=== PATIENT | female | born 1945 | race Caucasian/White ===

== ENCOUNTER → 2017-07-08 | Outpatient (CLI) | payer MEDICARE ==
--- NOTE | 2017-07-08 14:12 | Diagnostic Imaging Report ---
TECHNIQUE: Magnetic resonance imaging of the LEFT WRIST was performed WITHOUT injected contrast, on a 5 lisette magnet. HISTORY: Pain, fall COMPARISON: None available. FINDINGS: Bone and bone marrow: Bone island in the distal radius. No acute fracture or osteonecrosis. The osseous alignment is within normal limits. Joints: Fluid within the joints is within physiologic limits. Degenerative arthrosis of the first carpometacarpal joint. Ligaments: Scapholunate: Intact Lunotriquetral: Intact Triangular fibrocartilage complex: Intact Extrinsic ligaments: Intact Tendons: The flexor and extensor tendons are intact. Carpal tunnel: The median nerve is within normal limits. Other soft tissues: Soft tissue edema/collection distal radial forearm extending approximately 5 cm in craniocaudal dimension. IMPRESSION: No acute osseous, ligamentous, or tendinous abnormality. Presumed fluid collection/hematoma within the radial volar forearm. Signed by: Dr. Lázaro Kingston M.D. on 07/08/2017 2:08 PM
== END ==
LOC: MRI 10:58
PROVIDERS: ATTEND Family Medicine
DX: M25.532 Pain in left wrist (principal); S60.212A Contusion of left wrist, initial encounter; M89.9 Disorder of bone, unspecified

== ENCOUNTER → 2017-08-01 | Outpatient (CLI) | payer MEDICARE ==
--- NOTE | 2017-08-12 08:31 | Diagnostic Imaging Report ---
#[id number] - MGSCRNBI #BILATERAL DIGITAL SCREENING MAMMOGRAM WITH CAD: 08/01/2017 CLINICAL: Routine screening. Comparison is made to exams dated: 07/11/2016 mammogram, 05/11/2015 mammogram and 05/04/2014 mammogram - [facility]. Current study contains 5 films. There are scattered fibroglandular elements in both breasts. Current study was also evaluated with a Computer Aided Detection (CAD) system. No significant masses, calcifications, or other findings are seen in either breast. There has been no significant interval change. IMPRESSION: BENIGN There is no mammographic evidence of malignancy. A 1 year screening mammogram is recommended. The patient will be notified by letter of the results. Mitch albert/waldemar:08/11/2017 13:43:01 Affiliate Marketing Specialist: Lynda BLAIR(R)(M), [facility] letter sent: Compared to Prior B9 Mammogram BI-RADS: 2 Benign
== END ==
LOC: MAMMO 10:28
PROVIDERS: ATTEND Family Medicine
DX: Z12.31 Encounter for screening mammogram for malignant neoplasm of breast (principal)
CPT/HCPCS: 77067

== ENCOUNTER → 2017-10-14 | Outpatient (CLI) | payer MEDICARE ==
--- NOTE | 2017-10-14 16:21 | Diagnostic Imaging Report ---
PROCEDURE: CT CHEST WITHOUT CONTRAST CT scan of the chest WITHOUT intravenous contrast, using standard protocol. TECHNIQUE: The chest was scanned utilizing a multidetector helical scanner from the apex to the level of the adrenal glands. No IV contrast was administered per physician's request. Coronal and sagittal multiplanar reformations were obtained. COMPARISON: Patients [facility], CT, CT CHEST WO, 09/20/2016, 9:52. INDICATIONS: CHRONIC BRONCHITIS FINDINGS: Lines/tubes: None. Lungs and Airways: Stable coarse reticular opacities with associated segmental bronchiectasis in the anteromedial right upper lobe (series 3, image 36). Stable bilateral mild subpleural reticulation, worse in the lower lobes (for example series 3, image 83), consistent with fibrotic changes. Stable reticular scarring and bronchiectasis in the medial right lower lobe (series 3, image 53). Stable 3 mm pulmonary nodule in the right upper lobe (series 3, image 64, and sagittal image 31). Stable 2 and 3 mm pulmonary nodules in the left upper lobe (series 3, image 34). Stable 3 mm subpleural nodular density in the superior segment of the right lower lobe (series 3, image 54), which previously had a more linear appearance. Stable mild wall thickening in the central aspect of the bronchi in both upper and lower lobes. No other pulmonary nodules. No masses or consolidation. Airways are clear, without endobronchial lesions. Pleura: No effusion, or pneumothorax. Heart and mediastinum: Thyroid is unremarkable. Heart size is normal. No pericardial effusion. Aorta is non-aneurysmal. The main pulmonary artery measures 2.6 cm. Atherosclerotic calcification of the thoracic aorta and coronary arteries. Lymph nodes: No mediastinal, hilar, or axillary enlarged lymph nodes. Abdomen: Limited views of the upper abdomen show no abnormality within the visualized liver, spleen, pancreas, or kidneys. The adrenal glands are normal. Bones: Stable dextro scoliosis of the thoracic spine with associated degenerative changes. No aggressive lytic lesion. Soft tissues are grossly unremarkable. IMPRESSION: 1. Stable mild fibrotic changes, worse in the lower lobes. 2. Stable coarse reticular opacities/scarring and associated bronchiectasis in the anteromedial right upper lobe, likely the sequela of prior infection or inflammation. 3. No consolidation or effusion. 4. Stable pulmonary nodules, as described. 5. Stable mild wall thickening in the central aspect of the bronchi in the upper and lower lobes, likely sequela of chronic bronchitis. Greyson Brooks M.D. Dictated by: Greyson Brooks M.D. on 10/14/2017 at 16:23 Electronically approved by: Greyson Brooks M.D. on 10/14/2017 at 16:23
== END ==
LOC: CT 11:45
PROVIDERS: ATTEND Internal Medicine Critical Care Medicine
DX: R09.02 Hypoxemia (principal); J45.909 Unspecified asthma, uncomplicated; J42 Unspecified chronic bronchitis; J44.9 Chronic obstructive pulmonary disease, unspecified; Z87.891 Personal history of nicotine dependence
CPT/HCPCS: 71250

== ENCOUNTER → 2018-06-23 | Outpatient (CLI) | payer MEDICARE ==
[~2018-06-23] MED LIST: ALBUTEROL/IPRATROPIUM 3 ML NEB ONE
== END ==
LOC: RESP 10:40
PROVIDERS: ATTEND Internal Medicine Critical Care Medicine
DX: R09.02 Hypoxemia (principal); J47.9 Bronchiectasis, uncomplicated; J45.909 Unspecified asthma, uncomplicated; J42 Unspecified chronic bronchitis; J44.9 Chronic obstructive pulmonary disease, unspecified; J84.9 Interstitial pulmonary disease, unspecified; Z87.891 Personal history of nicotine dependence
CPT/HCPCS: 94060; 94727; 94729

== ENCOUNTER → 2018-07-22 | Outpatient (CLI) | payer MEDICARE | LOC: MAMMO 10:12 | PROVIDERS: ATTEND Family Medicine | DX: Z12.31 Encounter for screening mammogram for malignant neoplasm of breast (principal) | CPT/HCPCS: 77067 ==

== ENCOUNTER → 2018-08-11 | Outpatient (CLI) | payer MEDICARE ==
--- NOTE | 2018-08-11 14:57 | Diagnostic Imaging Report ---
Examination: MRI BRAIN WITHOUT CONTRAST History: Fall with head injury and numbness of the back of the head. Comparison studies: None Technique: Sagittal T2; axial DWI, FLAIR, GRE or SWI, T1, Coronal FLAIR. Intravenous contrast: None Findings: Scalp: No abnormal signal. No masses. Bone marrow: Normal in signal intensity. Brain volume: Adequate for age. Ventricles: Normal in size and configuration. No hydrocephalus. Extra-axial spaces: No abnormalities. Parenchyma: There are patchy and punctate areas of T2/FLAIR hyperintensity in the periventricular and subcortical white matter, nonspecific. No masses, hemorrhage, or acute vascular insults. Suprasellar and sellar region: No abnormalities. Craniocervical junction: No abnormalities. The foramen magnum is patent. No Chiari malformations. Vessels: Normal flow-voids in the arteries and sinuses. Additional findings:Bilateral slitlike orbital lenses. IMPRESSION: 1. No acute intracranial abnormalities. 2. Mild chronic microvascular ischemic change. Signed by: Dr. Leigh Tan M.D. on 08/11/2018 2:54 PM
== END ==
LOC: MRI 13:44
PROVIDERS: ATTEND Family Medicine
DX: S06.0X1A Concussion with loss of consciousness of 30 minutes or less, initial encounter (principal); S00.83XA Contusion of other part of head, initial encounter
CPT/HCPCS: 70551

== ENCOUNTER → 2018-08-26 | Outpatient (CLI) | payer MEDICARE ==
--- NOTE | 2018-08-26 12:13 | Diagnostic Imaging Report ---
EXAMINATION: CT scan of the chest without contrast. TECHNIQUE: Spiral CT images of the chest were performed from the lung apices to the level of the adrenal glands. No intravenous contrast was administered per referring physician request. Coronal and sagittal reformatted images were obtained. COMPARISON: CT chest without contrast 10/14/2017 CLINICAL HISTORY:Nodule follow-up, bronchiectasis, asthma DISCUSSION: ABSENCE OF INTRAVENOUS CONTRAST DECREASES SENSITIVITY FOR DETECTION OF FOCAL LESIONS AND VASCULAR PATHOLOGY. LINES/TUBES: None. LUNGS AND AIRWAYS: Previously described 3 mm nodule in the periphery of the left upper lobe is unchanged (series 3 image 39). 3 mm nodule in the lateral aspect of the right lower lobe is also unchanged (series 3 image 59). 3 mm nodule in the right upper lobe is also unchanged (series 3 image 67). Additional 3 mm nodule in the left upper lobe (series 3, image 29) is unchanged. Stable coarse reticular opacities and bronchiectasis in the medial aspect of the right upper lobe. Bilateral subpleural reticulation, lower lobe predominant, is also unchanged. New patchy foci of groundglass opacity in the left upper lobe for example on series 3 image 54. The trachea, mainstem bronchi, and lobar bronchi are patent. PLEURA: No pneumothorax or pleural effusions. HEART AND MEDIASTINUM: Visualized portions of the thyroid gland appear normal. Stable borderline ectasia of the ascending thoracic aorta (3.9 cm). Atherosclerotic calcification of the [place] coronary arteries and aortic arch/great vessels. No pericardial effusion. LYMPH NODES: No axillary, hilar, or mediastinal lymphadenopathy. ABDOMEN: Visualized portions of the liver, spleen, pancreas, and adrenal glands are unremarkable. BONES AND SOFT TISSUES: No osseous destructive lesions. Scoliotic curvature of the thoracic spine is unchanged. Multilevel degenerative disc changes of the partially visualized lower cervical and thoracic spine. No focal soft tissue abnormalities. IMPRESSION: Stable mild lower lobe predominant fibrotic changes. Stable volume loss, scar, and bronchiectasis within the anteromedial aspect of the right upper lobe, presumably post infectious or inflammatory. New focal groundglass opacity within the lateral aspect of the left upper lobe may reflect active inflammation or atypical infection. Follow-up CT scan of the chest without contrast in 3-6 months is suggested to document resolution. Stable scattered small bilateral pulmonary nodules as above. Atherosclerotic vascular disease. Signed by: Dr. Sarabjit Shafer M.D. on 08/26/2018 12:10 PM
== END ==
LOC: CT 11:07
PROVIDERS: ATTEND Internal Medicine Critical Care Medicine
DX: R09.02 Hypoxemia (principal); J42 Unspecified chronic bronchitis; J44.9 Chronic obstructive pulmonary disease, unspecified; J84.9 Interstitial pulmonary disease, unspecified; J45.909 Unspecified asthma, uncomplicated; J47.9 Bronchiectasis, uncomplicated; Z87.891 Personal history of nicotine dependence
CPT/HCPCS: 71250

== ENCOUNTER → 2019-04-06 | Outpatient (CLI) | payer MEDICARE | LOC: RESP 10:15 | PROVIDERS: ATTEND Family Medicine | DX: R09.02 Hypoxemia (principal); J47.9 Bronchiectasis, uncomplicated; J45.909 Unspecified asthma, uncomplicated; R91.1 Solitary pulmonary nodule; J84.9 Interstitial pulmonary disease, unspecified; Z87.891 Personal history of nicotine dependence | CPT/HCPCS: 94060; 94640; 94727; 94729 ==

== ENCOUNTER → 2019-04-06 | Outpatient (CLI) | payer MEDICARE ==
--- NOTE | 2019-04-06 14:29 | Diagnostic Imaging Report ---
EXAM: CT Chest WITHOUT contrast 04/06/2019 10:30 AM INDICATION: ^[id number] ^[id number] ^ASTHMA/BRONCHITIS/HYPOXEMIA/NODULE COMPARISON: CT chest 08/26/2018 and 10/11/2017 TECHNIQUE: Chest was scanned utilizing a multidetector helical scanner from the lung apex through the level of the adrenal glands without administration of IV contrast. Absence of intravenous contrast decreases sensitivity for detection of lymphadenopathy and vascular pathology. Coronal and sagittal reformations were obtained. Routine protocol was performed. IV CONTRAST: None COMPLICATIONS: None RADIATION DOSE: Total DLP: 105.5 mGy*cm Estimated effective dose: (DLP x 0.015 x size factor) mSv CTDIvol has been reviewed. It is below the limits set by the Radiation Protocol Committee (RPC). FINDINGS: LINES/ TUBES: None. LUNGS AND AIRWAYS: Hyperinflated lungs. Minimal bilateral centrilobular emphysema. Subpleural patchy areas of lung glass opacities with interval and interlobular septal thickening and mild architectural distortion in both anterior upper lobes, right greater than left, for example on series 3, image 39 consistent with nonspecific pattern of pulmonary fibrosis, stable since prior exam. Interval resolution of previously noted left upper lobe ground glass pulmonary nodules suggestive of resolving infection. Mild bilateral lower lobe, right middle lobe, and lingula bronchiectasis with peribronchial wall thickening and linear scarring remains unchanged and suggestive of sequela of prior infection including MAC. No new suspicious pulmonary nodules or masses. PLEURA: The pleural spaces are clear. HEART AND MEDIASTINUM: The thyroid gland is normal. No mediastinal, hilar or axillary lymphadenopathy. The heart is normal in size. There is no pericardial effusion. Extensive coronary artery calcification, worse in the LAD. Stable ectasia of the ascending thoracic aorta (3.9 cm. Mildly scattered atherosclerotic calcifications of the thoracic aorta. The main pulmonary artery is normal in size, measuring 2.2 cm in diameter. UPPER ABDOMEN: Unremarkable. BONES: Mild degenerative changes of the thoracic spine. SOFT TISSUES: Unremarkable. IMPRESSION: Interval resolution of the left upper lobe groundglass pulmonary nodules suggestive of resolving infection. Stable pulmonary fibrosis in the anterior upper lobes with a nonspecific finding that may relate to sequela of prior infection given the presence of the bilateral bronchiectasis and reticular scarring, including MAC. Differential diagnosis includes emphysema related to pulmonary fibrosis and chronic hypersensitivity pneumonitis. Recommend follow-up CT chest without contrast in 12 months. Signed by: Dr. Karly Hwang M.D. on 04/06/2019 2:25 PM
== END ==
LOC: CT 10:21
PROVIDERS: ATTEND Internal Medicine Critical Care Medicine
DX: R09.02 Hypoxemia (principal); J47.9 Bronchiectasis, uncomplicated; J45.909 Unspecified asthma, uncomplicated; Z87.891 Personal history of nicotine dependence; J84.9 Interstitial pulmonary disease, unspecified; R91.1 Solitary pulmonary nodule
CPT/HCPCS: 71250

== ENCOUNTER → 2019-07-23 | Outpatient (CLI) | payer MEDICARE | LOC: MAMMO 09:33 | PROVIDERS: ATTEND Family Medicine | DX: Z12.31 Encounter for screening mammogram for malignant neoplasm of breast (principal) | CPT/HCPCS: 77067 ==

== ENCOUNTER → 2019-07-28 | Outpatient (CLI) | payer MEDICARE ==
--- NOTE | 2019-07-28 10:37 | Diagnostic Imaging Report ---
Exam: Bone mineral density study. History: Posterior process screening, postmenopausal Comparison: 07/11/2016 Discussion: Evaluation of the left hip and lumbar spine was performed utilizing DEXA Hologic bone densitometer. The study is technically adequate. The patient's fracture risk is compared to an age-matched control. The patient denies prior surgery/fracture of the spine, hips or forearm. Left hip femoral neck bone mineral density: 0.629 g/cm2, T-score is -2.0, Z-score is 0.1. Left hip total bone mineral density: 0.630 g/cm2, T-score is -2.6, Z-score is -0.8. Left hip total bone mineral density is decreased 7.4% from the prior examination from 07/11/2016. Lumbar spine total bone mineral density: 0.909 gm/cm2, T-score is -1.3, Z-score is 1.2. Lumbar spine bone mineral density is increased 7.6% from the prior examination from 07/11/2016. Impression: 1. Bone mineralization by WHO Classification of the left hip is osteoporosis, the fracture risk is increased. 2. Bone mineralization by WHO Classification of the lumbar spine is osteopenia, the fracture risk is moderate. Recommendations: Medical evaluation for secondary causes of low bone mineral density may be appropriate. Correlate clinically for the necessity and timing of the next bone mineral density study. Signed by: Dr. Pablo Thorpe MD on 07/28/2019 10:35 AM
== END ==
LOC: DX 08:57
PROVIDERS: ATTEND Family Medicine
DX: N95.9 Unspecified menopausal and perimenopausal disorder (principal)
CPT/HCPCS: 77080

== ENCOUNTER → 2020-06-14 | Outpatient (CLI) | payer MEDICARE | LOC: CT 09:37 | PROVIDERS: ATTEND Internal Medicine Critical Care Medicine | DX: R09.02 Hypoxemia (principal); J45.909 Unspecified asthma, uncomplicated; J47.9 Bronchiectasis, uncomplicated; J84.9 Interstitial pulmonary disease, unspecified; R91.1 Solitary pulmonary nodule; Z87.891 Personal history of nicotine dependence | CPT/HCPCS: 71250 ==

== ENCOUNTER → 2021-09-17 | Outpatient (CLI) | payer MEDICARE | LOC: CT 11:34 | PROVIDERS: ATTEND Internal Medicine Critical Care Medicine | DX: R09.02 Hypoxemia (principal); J44.9 Chronic obstructive pulmonary disease, unspecified; R91.1 Solitary pulmonary nodule; J84.9 Interstitial pulmonary disease, unspecified; J45.909 Unspecified asthma, uncomplicated; Z87.891 Personal history of nicotine dependence | CPT/HCPCS: 71250 ==

== ENCOUNTER → 2022-09-16 | Outpatient (CLI) | payer MEDICARE | LOC: CT 09:43 | PROVIDERS: ATTEND Internal Medicine Critical Care Medicine | DX: R09.02 Hypoxemia (principal); J45.909 Unspecified asthma, uncomplicated; J44.9 Chronic obstructive pulmonary disease, unspecified; J84.9 Interstitial pulmonary disease, unspecified; R91.1 Solitary pulmonary nodule; Z86.16 Personal history of COVID-19; Z87.891 Personal history of nicotine dependence | CPT/HCPCS: 71250 ==

== ENCOUNTER → 2022-11-05 | Outpatient (CLI) | payer MEDICARE | LOC: RESP 09:27 | PROVIDERS: ATTEND Internal Medicine Critical Care Medicine | DX: R09.02 Hypoxemia (principal); J84.9 Interstitial pulmonary disease, unspecified; J44.9 Chronic obstructive pulmonary disease, unspecified; R91.1 Solitary pulmonary nodule; Z86.16 Personal history of COVID-19; Z87.891 Personal history of nicotine dependence | CPT/HCPCS: 94060; 94727; 94729 ==

== ENCOUNTER → 2024-02-04 | Outpatient (REF) | payer MEDICARE | LOC: CT 09:02 | PROVIDERS: ATTEND Nurse Practitioner Family | DX: R09.02 Hypoxemia (principal); J84.9 Interstitial pulmonary disease, unspecified; J44.9 Chronic obstructive pulmonary disease, unspecified; J47.9 Bronchiectasis, uncomplicated | CPT/HCPCS: 71250 ==

== ENCOUNTER → 2024-05-07 | Outpatient (REF) | payer MEDICARE | LOC: US 09:14 | PROVIDERS: ATTEND Family Medicine | DX: R22.1 Localized swelling, mass and lump, neck (principal) | CPT/HCPCS: 76536 ==